=== PATIENT | male | born 1940 | race Caucasian/White ===

== ENCOUNTER 2019-02-27 10:20 | Day surgery (SDC) | payer OTHER, SELFPAY ==
[2019-02-22 12:52] VITALS: BMI 23.9
[2019-02-27] VITALS (10 sets, daily range): BP systolic 101–146; BP diastolic 56–71; PULSE 64–76; RESP 11–16; TEMP 35.9–36.7; O2SAT 94–99; BMI 23.4
[2019-02-27] MEDS: LACTATED RINGERS 1,000 ML 42 ML IV (11:16)
--- NOTE | 2019-02-27 11:50 | PM.HP.1 ---
History of Present Illness History of Present Illness Date Patient Seen: 02/27/19 Time Patient Seen: 11:50 Chief complaint: [id number] REPAIR L INGUINAL HERNIA W/PROB MESH Narrative: Patient here for repair of a left inguinal hernia Patient History Medical History Asthma (Chronic) Hypertension (Chronic) Surgical History Hx of bilateral cataract extraction (Acute) Hx of blepharoplasty (Resolved) Family History (Updated 01/11/19 @ 15:34 by Angie Santiago, RN) Father Hypertension Heart disease Social History (Updated 01/11/19 @ 15:34 by Angie Santiago, RN) marital status: household members: spouse occupational status: previously employed Smoking Status: Never smoker alcohol intake: current substance use type: does not use Family & Social History Family History Father Hypertension Heart disease Social History: household members spouse Tobacco & Substance use: Smoking Status Never smoker alcohol intake current Substance Use Type does not use Meds Home Medications and Allergies Home Medications Medication Instructions Recorded Confirmed Type albuterol sulfate 90 mcg/actuation 1 inhalation INHALATION Q4-6H PRN 01/11/19 02/27/19 History breath activated powder inhaler budesonide 90 mcg/actuation breath 1 inhalation INHALATION BID 01/11/19 02/27/19 History activated powder inhaler lisinopril 20 mg tablet 20 mg PO DAILY 01/11/19 02/27/19 History salmeterol 50 mcg/dose blister 1 inhalation INHALATION Q12H 01/11/19 02/27/19 History powder for inhalation tamsulosin 0.4 mg capsule 0.4 mg PO DAILY 01/11/19 02/27/19 History verapamil 40 mg tablet 40 mg PO TID 01/11/19 02/27/19 History Allergies Allergy/AdvReac Type Severity Reaction Status Date / Time codeine [CODEINE] Allergy Intermediate NAUSEA/VOMI Verified 02/27/19 10:49 TTING Sulfa (Sulfonamide Allergy Unknown Verified 02/27/19 10:49 Antibiotics) [SULFA (SULFONAMIDE ANTIBIOTICS)] Review of Systems Review of Systems ROS Unobtainable: All systems reviewed & are unremarkable except as noted in HPI and below Exam Vital Signs (past 8 hours): - 02/27/19 11:00 Temperature 96.7 F L Pulse Rate 76 Respiratory Rate 16 Blood Pressure 146/71 H Pulse Oximetry 98 Oxygen Delivery Method Room Air Narrative Exam Narrative: Operative no apparent distress. Lungs are clear to auscultation. Heart regular rate and rhythm. Abdomen is soft nontender without mass. Patient has an ultrasound that shows fat protruding down is inguinal canal. Was difficult for me to find. Alert and oriented x3. Assessment & Plan Assessment & Plan narrative: Patient with a left inguinal hernia for repair. I have discussed the procedure and rationale with him. Risks were discussed with him and he appears to understand wishes to proceed
--- NOTE | 2019-02-27 11:51 | PM.PREOP ---
Pre-operative Note Interval Note History & Physical reviewed/Exam performed by Physician: Yes Changes to H&P: No
[2019-02-27] MEDS: CEFAZOLIN 2 GM/100 ML FROZ.PIGGY IV (11:57)
--- NOTE | 2019-02-27 12:19 | SUR.OPER ---
Supine on padded OR bed, head on pillow, arms secured on padded arm boards at <90 degrees abduction, legs uncrossed, safety belt at thigh, tape over blanket over lower legs.
[2019-02-27] MEDS: BUPIVACAINE 0.5% (PF) VIAL 30 ML INJ (12:22)
--- NOTE | 2019-02-27 13:22 | PM.OP.1 ---
Operative Date/Time/Diagnoses Date of procedure: 02/27/19 Time of procedure: 13:10 Pre-op diagnosis: Reducible left inguinal hernia Post-op diagnosis: same (Indirect left inguinal hernia. Large amount of fat in the cord.) Procedure & Clinicians Procedure: Repair with plug and patch technique left inguinal hernia Same procedure as scheduled: Yes Indications: Symptomatic hernia Surgeon: Lane Arguello Anesthesia Type: General Operative Notes Findings: See postop diagnosis Closure Type: primary Specimen(s): none sent Prosthetic devices, grafts, tissues, transplants, or devices: Plug and patch medium Estimated Blood Loss (mL): 5 Blood products transfused: none Procedure in detail: The patient was placed supine on the operating room table and underwent general LMA anesthesia. He was prepped and draped in the usual fashion. A transverse incision was made overlying the internal ring and carried down to the level of the external oblique. The external oblique was opened parallel with its fibers through the external ring. The cord structures were elevated. The cremaster was opened proximally and search made for an indirect sac. Very small proximal sac was identified and from surrounding structures. The patient had a large amount of fat in his cord. However much of this contain blood vessels that appeared to be going to the testicle. I could not out without risking the blood supply to the testicle and therefore I made no attempt to resect this fat. There was a very small amount of fat that was clearly separate from this and I ligated it at the level the deep epigastric vessels and removed the distal portion. The sac was opened and found to have a small amount of fat within it. This was reduced and a 2 0 silk was used to ligate the sac. The stump was allowed to retract. A medium plug was then placed in the defect created and tacked into place with interrupted Ethibond suture. The cremaster was closed over it.. The floor was examined and was found to be slightly weakened.. A patch was placed across the floor and tacked at the pubic tubercle, the posterior lamella of the anterior rectus sheath, the ilioinguinal ligament, and superior lateral to the cord. The opening was modified as necessary to prevent tight constriction of the cord. Sutures of 0 Tycron were used to secure the mesh. The external oblique was closed with a running 3 0 Vicryl. The subcu was closed with interrupted 3 0 Vicryl. The skin was closed with a running 4 0 Vicryl subcuticular stitch and Steri-Strips. Dressing was applied, the patient was awakened, and the patient was taken to the recovery area in good condition. Complications: none Post-operative Condition: stable Disposition: PACU
[2019-02-27] MEDS: fentaNYL 100 MCG/2 ML INJ 50 MCG IV (13:33)
[2019-02-27] MEDS: ACETAMINOPHEN 325 MG TABLET PO ×2 (14:07)
--- NOTE | 2019-02-27 14:18 | SUR.PHASEII ---
Assumed care from Deven, brought in, dressing to l groin remains C/D/I. D/c instructions discussed, both voiced an understanding.
--- NOTE | 2019-02-27 14:19 | SUR.PHASEII ---
Pt medicated with tylenol, pain rated 3/10.
== END 2019-02-27 15:00 | disposition home or self-care (01) ==
PROVIDERS: Family Provider Family Medicine; PCP Family Medicine; Visit Provider Specialist
PROC: (CPT 49505; principal; 2019-02-27 11:45)
DX: K40.90 Unilateral inguinal hernia, without obstruction or gangrene, not specified as recurrent (principal); J45.909 Unspecified asthma, uncomplicated; I10 Essential (primary) hypertension
CPT/HCPCS: 49505; C1781; J0690; J1100; J1885; J2250; J2405; J2704; J3010

== ENCOUNTER → 2021-07-09 12:55 | Outpatient (CLI) | payer OTHER, SELFPAY ==
[2021-07-09 18:27] LABS: Prostate Specific Antigen 1.69 ng/mL (0.10-4.00)
== END ==
PROVIDERS: Family Provider Family Medicine; PCP Family Medicine; Referring Provider Specialist; Visit Provider Specialist
DX: N13.8 Other obstructive and reflux uropathy (principal); N40.1 Benign prostatic hyperplasia with lower urinary tract symptoms
CPT/HCPCS: 36415; 84153

== ENCOUNTER 2021-08-29 11:57 | Emergency (ER) | payer OTHER, SELFPAY ==
[2021-08-29] VITALS (10 sets, daily range): BP systolic 119–149; BP diastolic 60–111; PULSE 56–62; RESP 11–36; TEMP 36.7; O2SAT 95–99
--- NOTE | 2021-08-29 12:32 | ED_ITS ---
HPI - Neuro Symptoms/Deficit General Chief Complaint: Neuro Symptoms/Deficit Stated Complaint: sent by eye doc, eye stroke? needs scan Time Seen by Provider: 08/29/21 12:30 Source: patient Mode of arrival: Ambulatory History of Present Illness HPI Narrative: Patient is a 80-year-old male who has a history of hypertension and asthma. He presents today at the request of ophthalmology for visual changes that started this morning. He said he was watching TV for short amount of time when he noticed flashing in his left eye. He noted some round opening and some rainbows. He was seen and evaluated ophthalmology who recommended he come to the ED for possible stroke workup. Patient's symptoms have since completely resolved. He has not had any blackening or loss of vision. He has no facial droop difficulty speaking numbness tingling or weakness. He is being worked up for cardiac issues. He says over last couple of weeks he has had increasing shortness of breath with exertion. He had an echocardiogram which did show a large defect but not sure is that is from his asthma and scar tissue versus a cardiac issue. He currently denies any chest pain palpitations or shortness of breath. He has not had any fever or chills. He reports actually that his breathing currently in the emergency department is good. He denies any or thopnea. On Anticoagulants: No Related Data Home Medications Medication Instructions Recorded Confirmed albuterol sulfate 90 mcg/actuation 1 inhalation INHALATION Q4-6H PRN 01/11/19 08/14/21 breath activated powder inhaler budesonide 90 mcg/actuation breath 1 inhalation INHALATION BID 01/11/19 08/14/21 activated powder inhaler lisinopril 20 mg tablet 20 mg PO DAILY 01/11/19 08/14/21 salmeterol 50 mcg/dose blister 1 inhalation INHALATION Q12H 01/11/19 08/14/21 powder for inhalation verapamil 40 mg tablet 40 mg PO TID 01/11/19 08/14/21 famotidine 40 mg tablet 40 mg PO DAILY 02/29/20 08/14/21 sotalol 80 mg tablet 80 mg PO BID 08/14/21 08/14/21 Previous Rx's Medication Instructions Recorded ibuprofen 600 mg tablet See Rx Instructions .ROUTE 03/08/19 .COMPLEX #20 tablet budesonide 180 mcg/actuation 1 - 2 inh INHALATION DAILY #1 ea 11/06/20 breath activated powder inhaler (Pulmicort Flexhaler) tamsulosin 0.4 mg capsule See Rx Instructions .ROUTE 06/09/21 .COMPLEX #180 cap Allergies Allergy/AdvReac Type Severity Reaction Status Date / Time codeine [CODEINE] Allergy Intermediate NAUSEA/VOMI Verified 08/14/21 07:55 TTING Sulfa (Sulfonamide Allergy Unknown Verified 08/14/21 07:55 Antibiotics) [SULFA (SULFONAMIDE ANTIBIOTICS)] Review of Systems Review of Systems Narrative: GENERAL: Denies chills, fatigue, malaise, fever, sweats, travel HEENT: See HPI RESPIRATORY: Denies dyspnea, cough, wheezing, hemoptysis, sputum. CARDIOVASCULAR: Denies chest pain, palpitations, orthopnea, edema GASTROINTESTINAL: Denies nausea, vomiting, abdominal pain, diarrhea, constipatio n, melena. : Denies dysuria, frequency, incontinence, hematuria, urinary retention, flank pain. MUSCULOSKELETAL: Denies weakness, joint pain, or bony pain SKIN: No rash, no erythema, no pruritus NEUROLOGIC: see HPI PSYCHIATRIC: No concerning psychosocial issues. 12 point review of systems is negative except for those stated above and HPI Hematologic/Lymphatic On Anticoagulants: No Patient History Medical History Asthma BPH (benign prostatic hyperplasia) BPH w urinary obs/LUTS Family history of prostate cancer Family history of prostate cancer Hypertension Retention of urine Surgical History History of colonoscopy Hx of bilateral cataract extraction Hx of blepharoplasty Vasectomy status Family History Father Hypertension Heart disease Social History marital status: household members: spouse occupational status: previously employed Smoking Status: Never smoker alcohol intake: current substance use type: does not use Smoking Status: Never smoker alcohol intake frequency: 0-2 drinks per day Substance Use Type: does not use Exam Initial Vital Signs Initial Vital Signs: Vital Signs Temperature 98.1 F 08/29/21 12:00 Pulse Rate 56 L 08/29/21 12:00 Respiratory Rate 18 08/29/21 12:00 Blood Pressure 149/73 H 08/29/21 12:00 Pulse Oximetry 99 08/29/21 12:00 GENERAL: Alert slightly anxious 80-year-old male HEENT: Head atraumatic,EOMI, pupils reactive, face symmetric, moist mucous membranes, red reflex present bilaterally CARDIOVASCULAR: Regular rate and rhythm without murmurs, rubs or gallops. RESPIRATORY: Breath sounds equal bilaterally, no wheezes rales or rhonchi. ABDOMEN: Soft, nontender. Normoactive bowel sounds all 4 quadrants. No guarding or rebound. EXTREMITIES: Normal range of motion, no clubbing or edema. Neurovascularly intact NEUROLOGICAL: Alert and oriented x4.Normal gait and speech. Cranial nerves II through XII grossly intact. Good [id number], good [id number], strength equal bilaterally, no dysarthria or aphasia, sensation in tact to soft touch bilaterally, no visual changes, no facial droop SKIN: Warm, dry, no laceration, no petechiae, no rashes or lesions. Scores NIH Stroke Scale Level of Conciousness: Alert, keenly responsive Ask month/age: Answers both questions correctly. Open/close eyes, close hand: Performs both tasks correctly Best gaze horizontal: Normal Visual guillermo: No visual loss Facial palsy: Normal symetrical movement Left arm drift: No drift for full 10 sec Right arm drift: No drift for full 10 sec Left leg drift: No drift for full 5 sec Right leg drift: No drift for full 5 sec Limb ataxia: Absent Sensory on face/arms/legs: Normal, no sensory loss Best language: No aphasia, normal Dysarthria: Normal Extinction or inattention: No abnormality Total NIH Stroke scale score: 0 Course Orders Ordered: ED Orders 08/29/21 12:10 Complete Blood Count AUTO DIFF Stat Comprehensive Metabolic Panel Stat D Dimer Stat Magnesium Stat NT-proBNP (BNP-Adult 18+) Stat Troponin & CK Cardiac Panel Stat 08/29/21 12:19 EKG-12 Lead Stat 08/29/21 12:46 CT head/brain wo con Stat 08/29/21 12:47 Consult to Respiratory Therapy Evaluate & Treat XR chest 1V Stat Vital Signs Vital signs: Vital Signs - 8 hr 08/29/21 12:00 08/29/21 12:06 08/29/21 12:16 Temperature 98.1 F Pulse Rate 56 L 61 59 L Respiratory Rate 18 13 23 Blood Pressure 149/73 H 149/73 H Pulse Oximetry 99 98 97 08/29/21 12:30 08/29/21 12:45 08/29/21 13:00 Temperature Pulse Rate 59 L 62 59 L Respiratory Rate 36 H 24 Blood Pressure 140/111 H Pulse Oximetry 97 97 08/29/21 13:02 08/29/21 13:15 08/29/21 13:30 Temperature Pulse Rate 56 L 56 L 57 L Respiratory Rate 11 L 17 12 Blood Pressure 149/65 H 130/69 133/60 Pulse Oximetry 97 95 97 08/29/21 13:45 Temperature Pulse Rate 58 L Respiratory Rate 14 Blood Pressure 119/68 Pulse Oximetry 96 MDM - Neuro Symptoms/Deficit Lab Data Result diagrams: 08/29/21 12:10 08/29/21 12:10 Labs: Lab Results 08/29/21 08/29/21 08/29/21 Range/Units 12:10 12:10 12:10 WBC 10.5 (4.5-11.0) X10^3/uL RBC 4.55 (4.5-5.9) X10^6/uL Hgb 14.6 (13.5-17.5) g/dL Hct 42.3 (41-53) % MCV 92.8 (80-100) fL MCH 32.2 (26-34) PG MCHC 34.7 (30-36) % RDW 13.9 (11.6-14.8) % Plt Count 214 (150-400) X10^3/uL Neut % (Auto) 77.6 H (50-75) % Lymph % (Auto) 10.3 L (25-40) % [place] % (Auto) 11.8 (3-14) % Eos % (Auto) 0.1 L (2-4) % Baso % (Auto) 0.2 (0-2) % Neut # (Auto) 8200 H (8855-2895) /uL Lymph # (Auto) 1100 (2844-8080) /uL [place] # (Auto) 1200 H (0-900) /uL Eos # (Auto) 0 (0-450) /uL Baso # (Auto) 0 (0-100) /uL D-Dimer 210 (<230) ng/mL Sodium (137-145) mmol/L Potassium (3.4-5.1) mmol/L Chloride (98-107) mmol/L Carbon Dioxide (22-32) mmol/L BUN (9-20) mg/dL Creatinine (0.66-1.25) mg/dL Estimated GFR (>60) mL/min BUN/Creatinine Ratio (6-22) Glucose (80-110) mg/dL Calcium (8.4-10.2) mg/dL Magnesium (1.6-2.3) mg/dL Total Bilirubin (0.2-1.3) mg/dL AST (17-59) IU/L ALT (<50) IU/L Alkaline Phosphatase (38-126) U/L Total Creatine Kinase (55-170) U/L CK-MB (CK-2) CK-MB (CK-2) Rel Index Troponin I (0.01-0.034) ng/mL NT-Pro-B Natriuret Pep 95 (<450) pg/mL Total Protein (6.3-8.2) g/dL Albumin (3.5-5.0) g/dL Globulin (1.7-4.1) g/dL Albumin/Globulin Ratio (1.0-2.8) 08/29/21 Range/Units 12:10 WBC (4.5-11.0) X10^3/uL RBC (4.5-5.9) X10^6/uL Hgb (13.5-17.5) g/dL Hct (41-53) % MCV (80-100) fL MCH (26-34) PG MCHC (30-36) % RDW (11.6-14.8) % Plt Count (150-400) X10^3/uL Neut % (Auto) (50-75) % Lymph % (Auto) (25-40) % [place] % (Auto) (3-14) % Eos % (Auto) (2-4) % Baso % (Auto) (0-2) % Neut # (Auto) (7402-5921) /uL Lymph # (Auto) (0361-2394) /uL [place] # (Auto) (0-900) /uL Eos # (Auto) (0-450) /uL Baso # (Auto) (0-100) /uL D-Dimer (<230) ng/mL Sodium 137 (137-145) mmol/L Potassium 4.8 (3.4-5.1) mmol/L Chloride 105 (98-107) mmol/L Carbon Dioxide 26 (22-32) mmol/L BUN 33 H (9-20) mg/dL Creatinine 1.10 (0.66-1.25) mg/dL Estimated GFR > 60.0 (>60) mL/min BUN/Creatinine Ratio 30.0 H (6-22) Glucose 86 (80-110) mg/dL Calcium 9.0 (8.4-10.2) mg/dL Magnesium 2.6 H (1.6-2.3) mg/dL Total Bilirubin 0.6 (0.2-1.3) mg/dL AST 23 (17-59) IU/L ALT 22 (<50) IU/L Alkaline Phosphatase 46 (38-126) U/L Total Creatine Kinase 35 L (55-170) U/L CK-MB (CK-2) TNP CK-MB (CK-2) Rel Index TNP Troponin I < 0.012 (0.01-0.034) ng/mL NT-Pro-B Natriuret Pep (<450) pg/mL Total Protein 6.4 (6.3-8.2) g/dL Albumin 4.1 (3.5-5.0) g/dL Globulin 2.3 (1.7-4.1) g/dL Albumin/Globulin Ratio 1.8 (1.0-2.8) Imaging Data CT scan - head: Radiologist's Impression: PROCEDURE:? CT HEAD/BRAIN WO CON ? INDICATIONS:? headache left eye changes ? TECHNIQUE:? Noncontrast 4.5 mm thick angled axial sections acquired from the foramen magnum to the vertex, with coronal and sagittal reformats.? For radiation dose reduction, the following was used:? automated exposure control, adjustment of mA and/or kV according to patient size.? ? COMPARISON:? [facility], CT, CT HEAD WITHOUT CONTRAST, 05/02/2019, 17:05. ? FINDINGS:? Image quality:? Excellent.? ? CSF spaces:? Basal cisterns are patent.? No extra-axial fluid collections.? The ventricles are symmetric in size and shape.? ? Brain:? No intracranial bleeds or masses.? There is cerebral volume loss for age, with resultant ventricular and sulcal prominence.? There are periventricular and deep white matter chronic small vessel ischemic changes.? There is intracranial internal carotid artery atherosclerosis.? ? Skull and face:? Calvarium and visualized facial bones appear intact, without suspicious lesions.? ? Sinuses:? Visualized sinuses and mastoids are clear.? ? ? IMPRESSION:? Normal noncontrast head CT for age.? Stable from prior. ? ? Dictated by: Deshawn Reich M.D. on 08/29/2021 at 12:06 ? ? Chest x-ray: Radiologist's Impression: PROCEDURE:? XR CHEST 1V ? INDICATIONS:? short of breath ? TECHNIQUE:? One view of the chest was acquired.? ? COMPARISON:? [facility], CR, XR CHEST 1 VIEW, 08/02/2021, 12:42. ? FINDINGS:? ? Surgical changes and devices:? Postsurgical changes at the left acromioclavicular joint.? ? ? Lungs and pleura:? Lungs are clear.? No pleural effusions or pneumothorax.? ? Mediastinum:? Mediastinal contours appear normal.? Heart size is normal.? ? Bones and chest wall:? No suspicious bony lesions.? Overlying soft tissues appear unremarkable.? Healed left posterior rib fractures are redemonstrated. ? IMPRESSION:? No acute cardiopulmonary abnormality. ? ? Dictated by: Kenneth Barnett M.D. on 08/29/2021 at 13:08 ? ? ECG Data Interpretation: Sinus rhythm your neural 238 QRS 88 QTC 5 mcg T-wave inversion MDM Narrative Medical decision making narrative: Patient has left-sided visual changes including flashing lights is that lasted for about 20 minutes and completely resolved. Symptoms are not consistent with stroke or retinal artery occlusion. He was seen and evaluated by Ophthalmology prior to his evaluation in the ED. He was cleared by Ophthalmology. He has an NIH stroke scale of 0. He was having some shortness of breath and chest discomfort being worked up as outpatient with cardiology and has a stress test next week. D dimer is negative BNP is negative at this time I see new further workup for his shortness of breath. Visual changes seem more consistent with an ocular migraine. Discharge Plan Departure Patient Disposition: Home Clinical Impression: Ocular migraine Instructions: DI for Visual Field Disturbances Activity Restrictions/Additional Instructions: *You have been diagnosed with visual changes *What to do: At this time her symptoms are not consistent with a stroke. Your workup today is negative. Possible ocular migraine. Please follow-up with your primary care provider chief operator to work your heart. No workup in the emergency department for your heart and shortness of breath today is also negative *Continue to take medications as directed *Follow up with your primary care provider in 2-3 days or call [phone] *Return to ER if you should have worsening visual changes loss of vision facial droop difficulty speaking weakness numbness tingling or chest pain shortness of breath or any new, worsening or concerning symptoms Prescriptions: No Action ibuprofen 600 mg tablet See Rx Instructions .ROUTE .COMPLEX Qty: 20 1RF Dose Instruction: TAKE ONE TABLET BY MOUTH EVERY SIX HOURS NEEDED FOR PAIN Rx Instructions: TAKE ONE TABLET BY MOUTH EVERY SIX HOURS NEEDED FOR PAIN tamsulosin 0.4 mg capsule See Rx Instructions .ROUTE .COMPLEX Qty: 180 1RF Dose Instruction: TAKE TWO CAPSULES BY MOUTH DAILY Rx Instructions: TAKE TWO CAPSULES BY MOUTH DAILY albuterol sulfate 90 mcg/actuation aerosol powdr breath activated 1 inhalation INHALATION Q4-6H PRN (Reason: Shortness Of Breath) 0RF budesonide 90 mcg/actuation aerosol powdr breath activated 1 inhalation INHALATION BID 0RF lisinopril 20 mg tablet 20 mg PO DAILY 0RF salmeterol 50 mcg/dose blister with device 1 inhalation INHALATION Q12H 0RF verapamil 40 mg tablet 40 mg PO TID 0RF famotidine 40 mg tablet 40 mg PO DAILY 0RF Pulmicort Flexhaler 180 mcg/actuation aerosol powdr breath activated 1 - 2 inh inhalation DAILY Qty: 1 0RF sotalol 80 mg tablet 80 mg PO BID 0RF Referrals: Bryant Baez MD [Primary Care Provider] -
--- NOTE | 2021-08-29 12:46 | DI.CT.S_ITS ---
PROCEDURE: CT HEAD/BRAIN WO CON INDICATIONS: headache left eye changes TECHNIQUE: Noncontrast 4.5 mm thick angled axial sections acquired from the foramen magnum to the vertex, with coronal and sagittal reformats. For radiation dose reduction, the following was used: automated exposure control, adjustment of mA and/or kV according to patient size. COMPARISON: [facility], CT, CT HEAD WITHOUT CONTRAST, 05/02/2019, 17:05. FINDINGS: Image quality: Excellent. CSF spaces: Basal cisterns are patent. No extra-axial fluid collections. The ventricles are symmetric in size and shape. Brain: No intracranial bleeds or masses. There is cerebral volume loss for age, with resultant ventricular and sulcal prominence. There are periventricular and deep white matter chronic small vessel ischemic changes. There is intracranial internal carotid artery atherosclerosis. Skull and face: Calvarium and visualized facial bones appear intact, without suspicious lesions. Sinuses: Visualized sinuses and mastoids are clear. IMPRESSION: Normal noncontrast head CT for age. Stable from prior. Dictated by: Deshawn Reich M.D. on 08/29/2021 at 12:06 Approved by: Deshawn Reich M.D. on 08/29/2021 at 12:07
--- NOTE | 2021-08-29 12:47 | DI.RAD.S_ITS ---
PROCEDURE: XR CHEST 1V INDICATIONS: short of breath TECHNIQUE: One view of the chest was acquired. COMPARISON: [facility], CR, XR CHEST 1 VIEW, 08/02/2021, 12:42. FINDINGS: Surgical changes and devices: Postsurgical changes at the left acromioclavicular joint. Lungs and pleura: Lungs are clear. No pleural effusions or pneumothorax. Mediastinum: Mediastinal contours appear normal. Heart size is normal. Bones and chest wall: No suspicious bony lesions. Overlying soft tissues appear unremarkable. Healed left posterior rib fractures are redemonstrated. IMPRESSION: No acute cardiopulmonary abnormality. Dictated by: Kenneth Barnett M.D. on 08/29/2021 at 13:08 Approved by: Kenneth Barnett M.D. on 08/29/2021 at 13:10
[2021-08-29 12:53] LABS: Add Manual Diff / Slide Review NO; Basophils Absolute Auto 0 /uL (0-100); Basophils Percent Auto 0.2 % (0-2); Eosinophils Absolute Auto 0 /uL (0-450); Eosinophils Percent Auto 0.1 % (2-4); Hematocrit 42.3 % (41-53); Hemoglobin 14.6 g/dL (13.5-17.5); Lymphocytes Absolute Auto 1100 /uL (1100-4500); Lymphocytes Percent Auto 10.3 % (25-40); Mean Corpuscular HGB Conc 34.7 % (30-36); Mean Corpuscular Hemoglobin 32.2 PG (26-34); Mean Corpuscular Volume 92.8 fL (80-100); Monocytes Absolute Auto 1200 /uL (0-900); Monocytes Percent Auto 11.8 % (3-14); Neutrophils Absolute Auto 8200 /uL (1500-7000); Neutrophils Percent Auto 77.6 % (50-75); Platelet Count 214 X10^3/uL (150-400); Red Blood Cell Count 4.55 X10^6/uL (4.5-5.9); Red Cell Distribution Width 13.9 % (11.6-14.8); White Blood Cell Count 10.5 X10^3/uL (4.5-11.0)
[2021-08-29 13:00] LABS: Alanine Aminotransferase 22 IU/L (<50); Albumin 4.1 g/dL (3.5-5.0); Albumin Globulin Ratio 1.8 (1.0-2.8); Alkaline Phosphatase 46 U/L (38-126); Aspartate Aminotransferase 23 IU/L (17-59); Bilirubin Total 0.6 mg/dL (0.2-1.3); Blood Urea Nitrogen 33 mg/dL (9-20); Carbon Dioxide 26 mmol/L (22-32); Chloride 105 mmol/L (98-107); Creatine Kinase 35 U/L (55-170); D Dimer 210 ng/mL (<230); Estimated Glomerular Filt Rate > 60.0 mL/min (>60); Globulin 2.3 g/dL (1.7-4.1); Glucose 86 mg/dL (80-110); HEMOLYSIS < 15 (0-50); Magnesium 2.6 mg/dL (1.6-2.3); Potassium 4.8 mmol/L (3.4-5.1); Sodium 137 mmol/L (137-145); Total Protein 6.4 g/dL (6.3-8.2)
[2021-08-29 13:09] LABS: NT-proBNP (BNP-Adult 18+) 95 pg/mL (<450)
[2021-08-29 13:11] LABS: Troponin I < 0.012 ng/mL (0.01-0.034)
== END 2021-08-29 14:35 | disposition home or self-care (01) ==
PROVIDERS: Emergency Provider Emergency Medicine; Family Provider Family Medicine; PCP Family Medicine
DX: G43.B0 Ophthalmoplegic migraine, not intractable (principal); I10 Essential (primary) hypertension
CPT/HCPCS: 36415; 70450; 71045; 80053; 82550; 83735; 83880; 84484; 85025; 85379; 93005; 93010; 99284

== ENCOUNTER → 2022-02-25 11:04 | Outpatient (CLI) | payer OTHER, SELFPAY ==
[2022-02-25 13:06] LABS: Prostate Specific Antigen 2.15 ng/mL (0.10-4.00)
== END ==
PROVIDERS: Family Provider Family Medicine; PCP Family Medicine; Referring Provider Specialist; Visit Provider Specialist
DX: R97.20 Elevated prostate specific antigen [PSA] (principal)
CPT/HCPCS: 36415; 84153

== ENCOUNTER → 2022-06-08 17:50 | Outpatient (CLI) | payer OTHER, SELFPAY ==
[2022-06-08 19:01] LABS: Prostate Specific Antigen 1.98 ng/mL (0.10-4.00)
== END ==
PROVIDERS: Family Provider Family Medicine; PCP Family Medicine; Referring Provider Specialist; Visit Provider Specialist
DX: N13.8 Other obstructive and reflux uropathy (principal); N40.1 Benign prostatic hyperplasia with lower urinary tract symptoms
CPT/HCPCS: 36415; 84153

== ENCOUNTER → 2022-09-03 12:43 | Outpatient (CLI) | payer OTHER, SELFPAY ==
[2022-09-03 15:45] LABS: Prostate Specific Antigen 2.11 ng/mL (0.10-4.00)
== END ==
PROVIDERS: Family Provider Family Medicine; PCP Family Medicine; Referring Provider Specialist; Visit Provider Specialist
DX: N40.1 Benign prostatic hyperplasia with lower urinary tract symptoms (principal); N13.8 Other obstructive and reflux uropathy
CPT/HCPCS: 36415; 84153

== ENCOUNTER → 2022-11-16 08:40 | Outpatient (CLI) | payer OTHER, SELFPAY ==
--- NOTE | 2022-11-16 | DI.US.S_ITS ---
PROCEDURE: US RENAL COMPLETE INDICATIONS: Chronic kidney disease, stage 3a TECHNIQUE: Real-time scanning was performed of the kidneys and bladder, with image documentation. COMPARISON: None. FINDINGS: Kidneys: Kidneys are normal in size. Right kidney measures 11.3 cm long; left kidney measures 11.5 cm long. Right renal cortical thickness is 1.9 cm; left renal cortical thickness is 1.4 cm. Renal cortical echotexture is normal. No hydronephrosis or nephrolithiasis. No suspicious solid mass lesions. Left renal cysts measure up to 2 cm Bladder: Pre-void bladder volume is 219 mL. Post-void residual is 164 mL. Pre-void images demonstrate no intraluminal masses or stones. On pre-void images, bilateral ureteral jets are noted with color Doppler interrogation. (Of note, ureteral jets may not be detectable in up to 25% of cases due to insufficient differences in specific gravity between ureteral and bladder urine). Miscellaneous: No free pelvic fluid. IMPRESSION: Renal cortical thickness and echotexture preserved. No hydronephrosis. 164 cc postvoid residual. No hydronephrosis Approved by: Waldemar Smyth M.D. on 11/16/2022 at 17:57
== END ==
PROVIDERS: Family Provider Family Medicine; PCP Family Medicine; Referring Provider Student in an Organized Health Care Education/Training Program; Visit Provider Student in an Organized Health Care Education/Training Program
DX: N18.31 Chronic kidney disease, stage 3a (principal); N28.1 Cyst of kidney, acquired
CPT/HCPCS: 76770

== ENCOUNTER → 2022-12-21 10:58 | Outpatient (CLI) | payer OTHER, SELFPAY ==
[2022-12-21 12:06] LABS: Appearance Urine UA CLEAR; Bilirubin Urine UA NEGATIVE (NEGATIVE); Color Urine UA YELLOW; Glucose Urine UA NEGATIVE (Negative); Ketones Urine UA NEGATIVE (NEGATIVE); Leukocyte Esterase Urine UA NEGATIVE (NEGATIVE); Nitrite Urine UA NEGATIVE (Negative); Occult Blood Urine UA NEGATIVE (Negative); Protein Urine UA NEGATIVE (Negative); Urobilinogen Urine UA 0.2 E.U./dL (0.2)
[2022-12-21 12:11] LABS: Bacteria Urine None Seen; Culture Indicated Urine Cult Not Indicated; RBC Urine None Seen (0-5/HPF); Squamous Epithelial Cell Urine None Seen (0-5/HPF); Urine Comments Microscopic Normal; WBC Urine None Seen (0-5/HPF)
[2022-12-21 12:13] LABS: Creatinine Urine Random 108.9 mg/dL
[2022-12-21 12:15] LABS: Protein (Total) Urine Random < 5 mg/dL (0-12); Protein Creatinine Ratio Urine 0.04 GRAM/24H
[2022-12-21 12:18] LABS: Hematocrit 36.9 % (41-53); Hemoglobin 12.5 g/dL (13.5-17.5)
[2022-12-21 12:37] LABS: BUN Creatinine Ratio 20.8 (6-22); Blood Urea Nitrogen 26 mg/dL (9-20); Calcium 8.9 mg/dL (8.4-10.2); Carbon Dioxide 27 mmol/L (22-32); Chloride 101 mmol/L (98-107); Estimated Glomerular Filt Rate 58 mL/min (>60); Glucose 72 mg/dL (80-110); HEMOLYSIS < 15 (0-50); Potassium 4.7 mmol/L (3.4-5.1); Sodium 134 mmol/L (137-145)
[2022-12-23 08:37] LABS: Parathyroid Hormone Int 56 pg/mL (15-65)
== END ==
PROVIDERS: Family Provider Family Medicine; PCP Family Medicine; Referring Provider Student in an Organized Health Care Education/Training Program; Visit Provider Student in an Organized Health Care Education/Training Program
DX: N05.9 Unspecified nephritic syndrome with unspecified morphologic changes (principal); D64.9 Anemia, unspecified; E83.30 Disorder of phosphorus metabolism, unspecified; N25.81 Secondary hyperparathyroidism of renal origin; N30.00 Acute cystitis without hematuria; R80.9 Proteinuria, unspecified
CPT/HCPCS: 36415; 80048; 81001; 82570; 83970; 84100; 84156; 85014; 85018

== ENCOUNTER → 2022-12-23 13:07 | Outpatient (CLI) | payer OTHER, SELFPAY ==
[2022-12-23 15:20] LABS: Prostate Specific Antigen 2.32 ng/mL (0.10-4.00)
== END ==
PROVIDERS: Family Provider Family Medicine; PCP Family Medicine; Referring Provider Specialist; Visit Provider Specialist
DX: N13.8 Other obstructive and reflux uropathy (principal); N40.1 Benign prostatic hyperplasia with lower urinary tract symptoms
CPT/HCPCS: 36415; 84153

== ENCOUNTER → 2023-03-15 14:11 | Outpatient (CLI) | payer OTHER, SELFPAY ==
[2023-03-15 16:43] LABS: Prostate Specific Antigen 1.83 ng/mL (0.10-4.00)
== END ==
PROVIDERS: Family Provider Family Medicine; PCP Family Medicine; Referring Provider Specialist; Visit Provider Specialist
DX: N40.1 Benign prostatic hyperplasia with lower urinary tract symptoms (principal); N13.8 Other obstructive and reflux uropathy
CPT/HCPCS: 36415; 84153

== ENCOUNTER → 2023-07-06 11:57 | Outpatient (CLI) | payer OTHER, SELFPAY ==
[2023-07-06 13:49] LABS: Prostate Specific Antigen 1.68 ng/mL (0.10-4.00)
== END ==
PROVIDERS: Family Provider Family Medicine; PCP Family Medicine; Referring Provider Specialist; Visit Provider Specialist
DX: N40.1 Benign prostatic hyperplasia with lower urinary tract symptoms (principal); N13.8 Other obstructive and reflux uropathy
CPT/HCPCS: 36415; 84153

== ENCOUNTER → 2023-07-20 12:55 | Outpatient (CLI) | payer OTHER, SELFPAY ==
[2023-07-20 14:07] LABS: Hematocrit 38.1 % (41-53); Hemoglobin 12.9 g/dL (13.5-17.5)
[2023-07-20 14:34] LABS: BUN Creatinine Ratio 21.7 (6-22); Blood Urea Nitrogen 26 mg/dL (9-20); Calcium 9.1 mg/dL (8.4-10.2); Carbon Dioxide 26 mmol/L (22-32); Chloride 106 mmol/L (98-107); Estimated Glomerular Filt Rate > 60 mL/min (>60); Glucose 73 mg/dL (80-110); HEMOLYSIS < 15 (0-50); Potassium 4.8 mmol/L (3.4-5.1); Sodium 136 mmol/L (137-145)
[2023-07-20 16:19] LABS: Creatinine Urine Random 78.7 mg/dL; Protein (Total) Urine Random < 5 mg/dL (0-12); Protein Creatinine Ratio Urine 0.06 GRAM/24H
[2023-07-22 07:36] LABS: Parathyroid Hormone Int 47 pg/mL (15-65)
== END ==
PROVIDERS: Family Provider Family Medicine; PCP Family Medicine; Referring Provider Student in an Organized Health Care Education/Training Program; Visit Provider Student in an Organized Health Care Education/Training Program
DX: N05.9 Unspecified nephritic syndrome with unspecified morphologic changes (principal); D70.9 Neutropenia, unspecified; D53.1 Other megaloblastic anemias, not elsewhere classified; R80.9 Proteinuria, unspecified; N25.81 Secondary hyperparathyroidism of renal origin
CPT/HCPCS: 36415; 80048; 82570; 83970; 84156; 85014; 85018

== ENCOUNTER → 2024-01-10 11:20 | Outpatient (CLI) | payer OTHER, SELFPAY ==
[2024-01-10 12:49] LABS: Prostate Specific Antigen 2.23 ng/mL (0.10-4.00)
== END ==
PROVIDERS: Specialist; Family Provider Family Medicine; Referring Provider Urology; Visit Provider Urology
DX: N40.1 Benign prostatic hyperplasia with lower urinary tract symptoms (principal); N13.8 Other obstructive and reflux uropathy
CPT/HCPCS: 36415; 84153